=== PATIENT | male | born 1995 | race Two or more races ===

== ENCOUNTER 2022-05-18 21:59 | Emergency (ER) | payer MEDICAID | END 2022-05-18 23:18 | disposition left against medical advice (07) | LOC: ER 21:59 | DX: M54.9 Dorsalgia, unspecified (principal); Z53.21 Procedure and treatment not carried out due to patient leaving prior to being seen by health care provider ==

== ENCOUNTER 2022-05-21 14:18 | Emergency (ER) | payer MEDICAID ==
[~2022-05-21] VITALS: Ht 165.1 cm; Wt 75.0 kg
[2022-05-21] MEDS ORDERED: LORazepam 2MG/ML-1ML VIAL IV ONE (14:45)
[2022-05-21] MEDS ORDERED: SODIUM CHLORIDE 0.9% 1,000 ML IV ONE (14:45)
[2022-05-21 15:27] LABS: Basophils # (auto) 0 10 ^3/uL (0-0.2); Basophils % (auto) 0.5 % (0.0-2.0); Eosinophils # (auto) 0 10 ^3/uL (0-0.8); Eosinophils % (auto) 0.2 % (0.0-7.0); Hematocrit 44.2 % (41.0-53.0); Hemoglobin 15.7 g/dL (13.5-17.5); Lymphocytes # (auto) 0.8 10 ^3/uL (0.4-5.4); Lymphocytes % (auto) 12.3 % (10.0-50.0); Mean Corpuscular Hemoglobin 31.5 pg (28.0-32.0); Mean Corpuscular Hgb Conc. 35.4 g/dL (32.0-36.0); Mean Corpuscular Volume 88.9 fL (80.0-100.0); Monocytes # (auto) 0.5 10 ^3/uL (0-1.3); Monocytes % (auto) 7.5 % (0.0-12.0); Neutrophils # (auto) 5.5 10 ^3/uL (1.6-8.6); Neutrophils % (auto) 79.5 % (37.0-80.0); Nucleated Red Blood Cells % 1.1 %; Red Blood Cells 4.97 10^6/uL (4.5-5.90); Red Cell Distribution Width 12.4 % (11.8-14.3); White Blood Cell 6.9 10^3/uL (4.4-10.8)
[2022-05-21 15:38] LABS: Albumin 4.9 g/dL (3.4-5.0); Calcium 9.6 mg/dL (8.5-10.1); Potassium 3.4 mmol/L (3.5-5.1)
[2022-05-21 15:40] LABS: BUN/Creatinine Ratio 25.6
[2022-05-21 15:51] LABS: Bilirubin, Total 1.6 mg/dL (0.2-1.0); Total Protein 8.2 g/dL (6.4-8.2)
[2022-05-21 16:00] LABS: Amphetamine Screen, Urine NEGATIVE (NEGATIVE); Barbiturate Scree,Urine NEGATIVE (NEGATIVE); Benzodiazephine Screen, Urine NEGATIVE (NEGATIVE); Cannabinoid Screen, Urine NEGATIVE (NEGATIVE); Cocaine Screen, Urine NEGATIVE (NEGATIVE); Opiate Scree,Urine NEGATIVE (NEGATIVE); Phencyclidine Screen, Urine NEGATIVE (NEGATIVE)
[2022-05-21] MEDS ORDERED: CHL10C PO (16:22)
[2022-05-21 19:51] VITALS: BP 148/90
== END 2022-05-21 20:06 | disposition home or self-care (01) ==
LOC: ER 14:18
DX: F10.239 Alcohol dependence with withdrawal, unspecified (principal); R06.02 Shortness of breath; Z88.6 Allergy status to analgesic agent; Z79.899 Other long term (current) drug therapy; Y90.8 Blood alcohol level of 240 mg/100 ml or more
CPT/HCPCS: 36415; 80053; 80307; 80320; 85025; 96361; 96374; 99283; J2060; J7030

== ENCOUNTER 2023-01-02 16:36 | Emergency (ER) | payer MEDICAID ==
[~2023-01-02] VITALS: Ht 167.6 cm; Wt 76.0 kg
[~2023-01-02 16:36] MED LIST: CHL10C PO
[2023-01-02] MEDS ORDERED: IBUP1TAB5 PO (20:52)
[2023-01-02] MEDS ORDERED: ZOFR4T PO (20:52)
[2023-01-02] MEDS ORDERED: ONDANSETRON ODT 4 MG TAB PO ONE (21:00)
[2023-01-02] MEDS ORDERED: HYDROcodone-ACET 5/325MG TAB PO ONE (21:00)
[2023-01-02 21:16] VITALS: BP 136/86; PULSE 70; RESP 18; TEMP 97.9; O2SAT 98
== END 2023-01-02 21:19 | disposition home or self-care (01) ==
LOC: ER 16:36
DX: R51.9 Headache, unspecified (principal)
CPT/HCPCS: 70450; 99284; Q0162

== ENCOUNTER 2023-12-13 23:02 | Emergency (ER) | payer MEDICAID ==
[~2023-12-13] VITALS: Ht 167.6 cm; Wt 78.6 kg
[~2023-12-13 23:02] MED LIST changes: +IBUP1TAB5 PO; +ZOFR4T PO
[2023-12-13 23:47] VITALS: BP 153/79; PULSE 116; RESP 16; TEMP 97.2; O2SAT 95
[2023-12-14] MEDS: DexAMETHasone SOD PHOS 10MG/1ML VIAL INJ IM ONE (02:47)
[2023-12-14] MEDS: KETOROLAC TROMETH 60MG/2ML VIAL IM ONE (02:47)
== END 2023-12-14 02:09 | disposition left against medical advice (07) ==
LOC: ER 23:02
DX: G43.909 Migraine, unspecified, not intractable, without status migrainosus (principal); R50.9 Fever, unspecified
CPT/HCPCS: 96372; 99284; J1100; J1885